=== PATIENT | male | born 1975 | race Two or more races ===

== ENCOUNTER → 2018-11-06 | Outpatient (CLI) | payer OTHER ==
[~2018-11-06] MED LIST: OXYC1TAB15 PO
--- NOTE | 2018-11-06 15:11 | RAD ---
FDG tumor localization scan, 11/06/2018: History: Left lower lobe mass Following IV injection of 13.0 mCi of 18 F-FDG, imaging was performed from the skull base to the proximal thighs. The noncontrast CT component was performed for attenuation correction and anatomic localization purposes rather than for primary diagnosis. The patient's blood glucose level the time of injection was 93 MG/DL. There is an 11 mm peripheral nodule in the posterior aspect of the left lower lobe. It demonstrates low level FDG uptake with a maximum SUV of 2.4. This is similar to the mediastinal background activity. The lack of avid FDG uptake may be due to its small size. There are 2 foci of avid FDG uptake present within the anterior and posterior aspects of left hilum. These nodules cannot be clearly from vascular structures on the noncontrast scans. The maximum SUV in this region is 7.9. The findings suggest hypermetabolic adenopathy. There is a small hypermetabolic density between the esophagus and trachea at the level of the aortic arch which demonstrates a maximum SUV of 4.3. Several other smaller nodes in the AP window region demonstrate low level FDG uptake. Physiologic activity is evident in the neck. Thyroid activity is symmetric. No hypermetabolic neck lesion is seen. Normal GI tract and urinary tract activity is present in the abdomen and pelvis. No hypermetabolic abdominal or pelvic lesion is seen. Incidental CT findings include the presence of densities in both maxillary sinuses which are probably retention cysts. IMPRESSION: 1. Left lower lobe pulmonary nodule demonstrating low level FDG uptake. This may be neoplastic or inflammatory. A small cell lung cancer is a possibility considering the left hilar findings. 2. Hypermetabolic left hilar foci suggesting metastatic disease versus a primary lung malignancy. 3. Hypermetabolic paraesophageal nodule, likely mediastinal adenopathy on a metastatic basis.
== END | disposition home or self-care (01) ==
LOC: PETSC 11:21
PROVIDERS: ATTEND Family Medicine
DX: R91.1 Solitary pulmonary nodule (principal); K22.8 Other specified diseases of esophagus
CPT/HCPCS: 78815; A9552

== ENCOUNTER 2018-11-13 09:49 | Observation (INO) | payer OTHER ==
[~2018-11-13] VITALS: Ht 170.2 cm; Wt 97.5 kg
[2018-11-13] VITALS (32 sets, daily range): BP systolic 105–153; BP diastolic 60–93
[2018-11-13] MEDS ORDERED: LIDOCAINE WITH 8.4% SOD BICARB 3 ML DISP.SYRIN. ONE (10:23)
[2018-11-13] MEDS ORDERED: FLUMAZENIL 0.5 MG/5 ML VIAL. IV ONE (10:33)
[2018-11-13] MEDS ORDERED: fentaNYL PF VIAL 100 MCG/2 ML VIAL ONE ×2 (10:33→11:53)
[2018-11-13] MEDS ORDERED: NALOXONE 0.4 MG/ML VIAL. ONE (10:33)
[2018-11-13] MEDS ORDERED: MIDAZOLAM HCL/PF 2 MG/2 ML VIAL. ONE (10:33)
[2018-11-13 10:41] LABS: BASO % 0 % (0-3); EOS # 0.2 x10^3/uL (0.0-0.7); EOS % 3 % (0-3); HEMATOCRIT 45.1 % (39.0-53.0); LYMPH # 1.5 x10^3/uL (1.0-4.8); LYMPH % 19 % (24-48); MEAN CORPUSCULAR HEMOGLOBIN 30 pg (25-35); MEAN CORPUSCULAR HGB CONC 33 g/dL (31-37); MEAN CORPUSCULAR VOLUME 90 fL (79-100); MONO # 0.7 x10^3/uL (0.0-1.1); MONO % 8 % (0-9); NEUT # 5.6 x10^3uL (1.8-7.7); NEUT % 70 % (31-73); PLATELET COUNT 225 x10^3/uL (140-400); RED CELL DISTRIBUTION WIDTH 12.8 % (11.5-14.5); WHITE BLOOD COUNT 8.1 x10^3/uL (4.0-11.0)
[2018-11-13 10:45] LABS: PROTHROMBIN TIME PATIENT 12.9 SEC (11.7-14.0)
[2018-11-13] MEDS ORDERED: MIDAZOLAM HCL/PF 2 MG/2 ML VIAL. IV ONE (10:45)
[2018-11-13] MEDS ORDERED: LIDOCAINE WITH 8.4% SOD BICARB 3 ML DISP.SYRIN. IJ ONE (10:45)
[2018-11-13] MEDS ORDERED: fentaNYL PF VIAL 100 MCG/2 ML VIAL IV ONE ×2 (10:45→12:00)
--- NOTE | 2018-11-13 12:02 | NUR ---
Patient became diaphoretic and complained of left upper abdominal pain when he was moved from CT table to cart. Dr. Valentin notified and patient was placed back on monitors and rescanned. Patient will be admitted to observe overnight due to pain and status post left lung biopsy. Will continue to monitor.
[2018-11-13] MEDS ORDERED: oxyCODONE/APAP 5/325 1 TAB TABLET PO ONE (12:30)
--- NOTE | 2018-11-13 13:01 | PDOC ---
MODERATE SEDATION ASSESSMENT RISKS/ALTERNATIVES Risks/Alternatives Risks and alternatives of this type of sedation and procedure discussed with: RISK/ALTERNATIVES: Patient H & P ON CHART H & P H & P on chart and reviewed for co-morbid conditions and appropriate labs. H&P ON CHART: Yes STATUS PREG STATUS ASSESSED: Yes MEDS/ALLERGIES REVIEWED Meds/Allergies Reviewed Medications and Allergies including time and route of recently administered narcotics and sedatives. MEDS/ALLERGIES REVIEWED: Yes ASA RATING ASA RATING: II AIRWAY ASSESSMENT Airway Assessment Airway patency, oral function limitations, presence of caps, crowns, dentures, partials, and ability to extend neck assessed. AIRWAY ASSESSMENT: Yes MALLAMPATI SCORE MALLAMPATI SCORE: II PRE-SEDATION ASSESSMENT PRE-SEDATION ASSESSMENT: Yes HENOK BHAT MD Nov 13, 2018 13:01
--- NOTE | 2018-11-13 13:06 | PDOC ---
Provider Note Provider Note IR NOTE Patient noted to have small left hemothorax post lung biopsy. Mild self limited hemoptysis also noted. Patient hemodynamically stable, with normal pulse, bp, and 02 sat. No pneumothorax. Will admit for observation and monitoring of hemodynamics, hb, and chest imaging. No anticoagulants. No medical allergies. Iodine allergy hx is from shellfish, and likely not relevant to contrast. Case discussed with CT surgery and Hospitalist, who was gracious enough to admit and help manage the patient. If hemothorax increases in size, may need drainage. If bleeding persists and does not stop spontaneously, angiogram and intercostal embolization vs VATS will be likely next steps. Will get follow Hb. 2 hour x ray ordered. HENOK BHAT MD Nov 13, 2018 13:06
[2018-11-13] MEDS ORDERED: fentaNYL PF VIAL 100 MCG/2 ML VIAL IV PRN (13:15)
[2018-11-13] MEDS ORDERED: oxyCODONE/APAP 5/325 1 TAB TABLET PO PRN (13:15)
[2018-11-13] MEDS ORDERED: diphenhydrAMINE HCL 25 MG CAPSULE PO PRN (13:15)
--- NOTE | 2018-11-13 13:16 | PDOC1 ---
History and Physical Date of Admission Date of Admission DATE: 11/13/18 TIME: 13:11 Identification/Chief Complaint Chief Complaint leFt sided chest pain post lung biopsy Source Source: Caregiver, Chart review, Patient History of Present Illness History of Present Illness [age]-year-old male who has limited Guatemalan, translates at Bedside, Was Scheduled for an Outpatient Lung Biopsy for a New Lung Spot, Previous Ex- Smoker Quit 2 Years Ago. Had Some Chest Pains Post Procedure and Now Has a Small Mild Hemothorax. Discussed with IR. Admit for Observation. Also IR has Discussed Case with T LOKESH, Continue to Observe. If Gets Worse Might Need a Chest Tube but Hopefully Will Resolve on Its Own. Patient Not on Any Blood Thinners. Patient Not on Any Medications. PAin better after percocet Patient Was Sent in by Pulmonary Office for the Lung Biopsy for This New Lung Spot Pt seen on CV office/IR post PACU Past Medical History Cardiovascular: No pertinent hx Pulmonary: No pertinent hx GI: No pertinent hx Heme/Onc: No pertinent hx Hepatobiliary: No pertinent hx Psych: No pertinent hx Rheumatologic: No pertinent hx Infectious disease: No pertinent hx ENT: No pertinent hx Renal/: No pertinent hx Endocrine: No pertinent hx Dermatology: No pertinent hx Past Surgical History Past Surgical History: No pertinent history Family History Family History: High Cholestrol, Hypertension Social History Smoke: Quit ALCOHOL: none Drugs: None Current Medications Current Medications Current Medications Lidocaine/Sodium Bicarbonate (Buffered Lidocaine 1%) 3 ml STK-MED ONCE .ROUTE ; Start 11/13/18 at 10:23; Stop 11/13/18 at 10:24; Status DC Midazolam HCl (Versed) 2 mg STK-MED ONCE .ROUTE ; Start 11/13/18 at 10:33; Stop 11/13/18 at 10:34; Status DC Fentanyl Citrate (Fentanyl 2ml Vial) 100 mcg STK-MED ONCE .ROUTE ; Start at 10:33; Stop 11/13/18 at 10:34; Status DC Flumazenil (Romazicon) 0.5 mg STK-MED ONCE IV ; Start 11/13/18 at 10:33; Stop at 10:34; Status DC Naloxone HCl (Narcan) 0.4 mg STK-MED ONCE .ROUTE ; Start 11/13/18 at 10:33; Stop 11/13/18 at 10:34; Status DC Lidocaine/Sodium Bicarbonate (Buffered Lidocaine 1%) 3 ml 1X ONCE IJ Last administered on 11/13/18at 10:45; Start 11/13/18 at 10:45; Stop 11/13/18 at 10:46 ; Status DC Midazolam HCl (Versed) 2 mg 1X ONCE IV Last administered on 11/13/18at 10:45; Start 11/13/18 at 10:45; Stop 11/13/18 at 10:46; Status DC Fentanyl Citrate (Fentanyl 2ml Vial) 100 mcg 1X ONCE IV Last administered on at 10:45; Start 11/13/18 at 10:45; Stop 11/13/18 at 10:46; Status DC Fentanyl Citrate (Fentanyl 2ml Vial) 100 mcg STK-MED ONCE .ROUTE ; Start at 11:53; Stop 11/13/18 at 11:54; Status DC Fentanyl Citrate (Fentanyl 2ml Vial) 100 mcg 1X ONCE IV Last administered on at 12:00; Start 11/13/18 at 12:00; Stop 11/13/18 at 12:03; Status DC Oxycodone/ Acetaminophen (Percocet 5/325) 1 tab 1X ONCE PO Last administered on 11/13/18at 12:30; Start 11/13/18 at 12:30; Stop 11/13/18 at 12:31; Status DC Active Scripts Active Reported No Known Medications Prior To Admisstion (Info) Each 1 Each MC 1X Allergies Allergies: Coded Allergies: Iodine and Iodide Containing Produc (Verified Allergy, Severe, Shortness of Air, 11/13/18) ROS Review of System A 14 point ROS was completed with the following noted as positive: Other systems reviewed and negative. \CONSTITUTIONAL: No fever or chills EYES: No recent changes SKIN: No rash or itching CARDIOVASCULAR: No chest pain, syncope, palpitations, or edema RESPIRATORY: No SOB or cough GASTROINTESTINAL: No nausea, vomiting or abdominal pain NEUROLOGICAL: No headaches or weakness ENDOCRINE: No cold or heat intolerance GENITOURINARY: No urgency or frequency of urination MUSCULOSKELETAL: No back pain or joint pain LYMPHATICS: No enlarged lymph nodes PSYCHIATRIC: No anxiety or depression Physical Exam General: Alert, Oriented X3, Cooperative, No acute distress HEENT: Atraumatic, PERRLA Lungs: Normal air movement, Other (symmetrical chest expansion, dullness to percussion on the left side, no wheezing) Heart: S1S2, RRR, no thrills, no rubs, no gallops, no murmurs Cardiovascular: S1, S2 Abdomen: Normal bowel sounds, Soft, No tenderness, No hepatosplenomegaly, No masses Male Genitals Exam: normal genitalia, normal prostate Rectal Exam: not examined PELVIC: Nml ext genitalia Extremities: No clubbing, No cyanosis, No edema, Normal pulses, No tenderness/ swelling Skin: No rashes, No breakdown, No significant lesion Neuro: Normal gait, Normal speech, Strength at 5/5 X4 ext, Normal tone, Sensation intact, Cranial nerves 3-12 NL, Reflexes 2+ Psych/Mental Status: Mental status NL, Mood NL Vitals Vitals Vital Signs Date Time Temp Pulse Resp B/P (MAP) Pulse Ox O2 Delivery O2 Flow Rate FiO2 11/13/18 12:30 24 98 Nasal Cannula 2.0 11/13/18 12:10 70 11/13/18 11:54 120/71 (87) Labs Labs Laboratory Tests Test 11/13/18 10:10 White Blood Count 8.1 x10^3/uL (4.0-11.0) Red Blood Count 5.00 x10^6/uL (4.30-5.70) Hemoglobin 15.0 g/dL (13.0-17.5) Hematocrit 45.1 % (39.0-53.0) Mean Corpuscular Volume 90 fL (79-100) Mean Corpuscular Hemoglobin 30 pg (25-35) Mean Corpuscular Hemoglobin Concent 33 g/dL (31-37) Red Cell Distribution Width 12.8 % (11.5-14.5) Platelet Count 225 x10^3/uL (140-400) Neutrophils (%) (Auto) 70 % (31-73) Lymphocytes (%) (Auto) 19 % (24-48) Monocytes (%) (Auto) 8 % (0-9) Eosinophils (%) (Auto) 3 % (0-3) Basophils (%) (Auto) 0 % (0-3) Neutrophils # (Auto) 5.6 x10^3uL (1.8-7.7) Lymphocytes # (Auto) 1.5 x10^3/uL (1.0-4.8) Monocytes # (Auto) 0.7 x10^3/uL (0.0-1.1) Eosinophils # (Auto) 0.2 x10^3/uL (0.0-0.7) Basophils # (Auto) 0.0 x10^3/uL (0.0-0.2) Prothrombin Time 12.9 SEC (11.7-14.0) Prothromb Time International Ratio 1.0 (0.8-1.1) Laboratory Tests Test 11/13/18 10:10 White Blood Count 8.1 x10^3/uL (4.0-11.0) Red Blood Count 5.00 x10^6/uL (4.30-5.70) Hemoglobin 15.0 g/dL (13.0-17.5) Hematocrit 45.1 % (39.0-53.0) Mean Corpuscular Volume 90 fL (79-100) Mean Corpuscular Hemoglobin 30 pg (25-35) Mean Corpuscular Hemoglobin Concent 33 g/dL (31-37) Red Cell Distribution Width 12.8 % (11.5-14.5) Platelet Count 225 x10^3/uL (140-400) Neutrophils (%) (Auto) 70 % (31-73) Lymphocytes (%) (Auto) 19 % (24-48) Monocytes (%) (Auto) 8 % (0-9) Eosinophils (%) (Auto) 3 % (0-3) Basophils (%) (Auto) 0 % (0-3) Neutrophils # (Auto) 5.6 x10^3uL (1.8-7.7) Lymphocytes # (Auto) 1.5 x10^3/uL (1.0-4.8) Monocytes # (Auto) 0.7 x10^3/uL (0.0-1.1) Eosinophils # (Auto) 0.2 x10^3/uL (0.0-0.7) Basophils # (Auto) 0.0 x10^3/uL (0.0-0.2) Prothrombin Time 12.9 SEC (11.7-14.0) Prothromb Time International Ratio 1.0 (0.8-1.1) VTE Prophylaxis Ordered VTE Prophylaxis Devices: Contraindicated VTE Pharmacological Prophylaxi: Contraindicated Assessment/Plan Assessment/Plan SMAll left-sided hemothorax post lung biopsy-not unexpected complication Smoker quit 2 years ago Plan: Serial x-rays planned T [facility] consulted Okay for regular diet So far plan is to observe No NSAIDs Control pain \FULL CODE NO home meds to reconcile Seen in PACU, post IR area OBS DIEGO MAHER MD Nov 13, 2018 13:16
--- NOTE | 2018-11-13 14:13 | RAD ---
Chest radiograph 11/13/2018 2:00 PM INDICATION: Post lung biopsy COMPARISON: Biopsy November 13, 2018 TECHNIQUE: Single upright view of the chest is provided. FINDINGS: The cardiomediastinal silhouette is within normal limits. There are no pleural effusions. There is no pulmonary vascular congestion. There is no pneumothorax. Left hilar fullness appears similar. Trace left pleural effusion is noted. No significant osseous abnormality is identified. IMPRESSION: No acute pneumothorax. Electronically signed by: Yari Rhoades MD (11/13/2018 2:10 PM) [id number]
--- NOTE | 2018-11-13 15:09 | NUR ---
Dr. Quick here earlier and spoke with Dr. Valentin, pt and pt's . discussed plan of care. pt A&O x3. denies pain at time of transfer to room 254. bandage on back procedure site has pea size spot of bloody drainage. had small amount of bloody sputum when he coughed just prior to transfer. SPO2 has been ranging 96-99% on 2 l n/c. at bedside . pt transferred up to room 254 per cart.
--- NOTE | 2018-11-13 15:30 | NUR ---
The patient, JOHNY ASH, 43 y/o, M admitted by DIEGO MAHER MD, was given written information regarding hospital policies, unit procedures and contact persons. Valuables were checked
[2018-11-13 16:18] LABS: CALCIUM 8.9 mg/dL (8.5-10.1); CREATININE 0.8 mg/dL (0.7-1.3); GFR 105.5; POTASSIUM 4.2 mmol/L (3.5-5.1)
[2018-11-14 02:53] VITALS: BP 100/58
[2018-11-14 07:00] VITALS: BP 132/60
--- NOTE | 2018-11-14 08:39 | PDOC ---
PROGRESS NOTES Chief Complaint Chief Complaint SMAll left-sided hemothorax post lung biopsy-not unexpected complication Smoker quit 2 years ago History of Present Illness History of Present Illness 43 yo male who has limited Lao, daughter translates at Bedside, Was Scheduled for an Outpatient Lung Biopsy for a New Lung Spot, Previous Ex- Smoker Quit 2 Years Ago. Had Some Chest Pains Post Procedure and apparently had a Small Mild Hemothorax. Discussed with IR. Admitted for Observation. Also IR has Discussed Case with Juan CAMPA, Continue to Observe. If Gets Worse Might Need a Chest Tube but Hopefully Will Resolve on Its Own. Patient Not on Any Blood Thinners. Patient Not on Any Medications. Pain better after percocet. Awaiting repeat CXR this morning. Denies SOB or CP. only has some left sided back pain at biopsy location. Plan: OK for d/c after repeat CXR. Vitals Vitals Vital Signs Date Time Temp Pulse Resp B/P (MAP) Pulse Ox O2 Delivery O2 Flow Rate FiO2 11/14/18 07:00 98.4 74 18 132/60 (84) 96 Room Air 98.4 11/13/18 14:20 2.0 Physical Exam General: Alert, Oriented X3, Cooperative, No acute distress Abdomen: Normal bowel sounds, Soft, No tenderness, No hepatosplenomegaly, No masses Extremities: No clubbing, No cyanosis, No edema, Normal pulses, No tenderness/ swelling Skin: No rashes, No breakdown, No significant lesion Labs LABS Laboratory Tests Test 11/13/18 10:10 11/13/18 15:50 White Blood Count 8.1 x10^3/uL (4.0-11.0) Red Blood Count 5.00 x10^6/uL (4.30-5.70) Hemoglobin 15.0 g/dL (13.0-17.5) 15.2 g/dL (13.0-17.5) Hematocrit 45.1 % (39.0-53.0) Mean Corpuscular Volume 90 fL (79-100) Mean Corpuscular Hemoglobin 30 pg (25-35) Mean Corpuscular Hemoglobin Concent 33 g/dL (31-37) Red Cell Distribution Width 12.8 % (11.5-14.5) Platelet Count 225 x10^3/uL (140-400) Neutrophils (%) (Auto) 70 % (31-73) Lymphocytes (%) (Auto) 19 % (24-48) Monocytes (%) (Auto) 8 % (0-9) Eosinophils (%) (Auto) 3 % (0-3) Basophils (%) (Auto) 0 % (0-3) Neutrophils # (Auto) 5.6 x10^3uL (1.8-7.7) Lymphocytes # (Auto) 1.5 x10^3/uL (1.0-4.8) Monocytes # (Auto) 0.7 x10^3/uL (0.0-1.1) Eosinophils # (Auto) 0.2 x10^3/uL (0.0-0.7) Basophils # (Auto) 0.0 x10^3/uL (0.0-0.2) Prothrombin Time 12.9 SEC (11.7-14.0) Prothromb Time International Ratio 1.0 (0.8-1.1) Sodium Level 141 mmol/L (136-145) Potassium Level 4.2 mmol/L (3.5-5.1) Chloride Level 104 mmol/L (98-107) Carbon Dioxide Level 30 mmol/L (21-32) Anion Gap 7 (6-14) Blood Urea Nitrogen 14 mg/dL (8-26) Creatinine 0.8 mg/dL (0.7-1.3) Estimated GFR (Cockcroft-Gault) 105.5 Glucose Level 83 mg/dL (70-99) Calcium Level 8.9 mg/dL (8.5-10.1) Comment Review of Relevant I have reviewed the following items linn (where applicable) has been applied. Labs Laboratory Tests Test 11/13/18 10:10 11/13/18 15:50 White Blood Count 8.1 x10^3/uL (4.0-11.0) Red Blood Count 5.00 x10^6/uL (4.30-5.70) Hemoglobin 15.0 g/dL (13.0-17.5) 15.2 g/dL (13.0-17.5) Hematocrit 45.1 % (39.0-53.0) Mean Corpuscular Volume 90 fL (79-100) Mean Corpuscular Hemoglobin 30 pg (25-35) Mean Corpuscular Hemoglobin Concent 33 g/dL (31-37) Red Cell Distribution Width 12.8 % (11.5-14.5) Platelet Count 225 x10^3/uL (140-400) Neutrophils (%) (Auto) 70 % (31-73) Lymphocytes (%) (Auto) 19 % (24-48) Monocytes (%) (Auto) 8 % (0-9) Eosinophils (%) (Auto) 3 % (0-3) Basophils (%) (Auto) 0 % (0-3) Neutrophils # (Auto) 5.6 x10^3uL (1.8-7.7) Lymphocytes # (Auto) 1.5 x10^3/uL (1.0-4.8) Monocytes # (Auto) 0.7 x10^3/uL (0.0-1.1) Eosinophils # (Auto) 0.2 x10^3/uL (0.0-0.7) Basophils # (Auto) 0.0 x10^3/uL (0.0-0.2) Prothrombin Time 12.9 SEC (11.7-14.0) Prothromb Time International Ratio 1.0 (0.8-1.1) Sodium Level 141 mmol/L (136-145) Potassium Level 4.2 mmol/L (3.5-5.1) Chloride Level 104 mmol/L (98-107) Carbon Dioxide Level 30 mmol/L (21-32) Anion Gap 7 (6-14) Blood Urea Nitrogen 14 mg/dL (8-26) Creatinine 0.8 mg/dL (0.7-1.3) Estimated GFR (Cockcroft-Gault) 105.5 Glucose Level 83 mg/dL (70-99) Calcium Level 8.9 mg/dL (8.5-10.1) Laboratory Tests Test 11/13/18 10:10 11/13/18 15:50 White Blood Count 8.1 x10^3/uL (4.0-11.0) Red Blood Count 5.00 x10^6/uL (4.30-5.70) Hemoglobin 15.0 g/dL (13.0-17.5) 15.2 g/dL (13.0-17.5) Hematocrit 45.1 % (39.0-53.0) Mean Corpuscular Volume 90 fL (79-100) Mean Corpuscular Hemoglobin 30 pg (25-35) Mean Corpuscular Hemoglobin Concent 33 g/dL (31-37) Red Cell Distribution Width 12.8 % (11.5-14.5) Platelet Count 225 x10^3/uL (140-400) Neutrophils (%) (Auto) 70 % (31-73) Lymphocytes (%) (Auto) 19 % (24-48) Monocytes (%) (Auto) 8 % (0-9) Eosinophils (%) (Auto) 3 % (0-3) Basophils (%) (Auto) 0 % (0-3) Neutrophils # (Auto) 5.6 x10^3uL (1.8-7.7) Lymphocytes # (Auto) 1.5 x10^3/uL (1.0-4.8) Monocytes # (Auto) 0.7 x10^3/uL (0.0-1.1) Eosinophils # (Auto) 0.2 x10^3/uL (0.0-0.7) Basophils # (Auto) 0.0 x10^3/uL (0.0-0.2) Prothrombin Time 12.9 SEC (11.7-14.0) Prothromb Time International Ratio 1.0 (0.8-1.1) Sodium Level 141 mmol/L (136-145) Potassium Level 4.2 mmol/L (3.5-5.1) Chloride Level 104 mmol/L (98-107) Carbon Dioxide Level 30 mmol/L (21-32) Anion Gap 7 (6-14) Blood Urea Nitrogen 14 mg/dL (8-26) Creatinine 0.8 mg/dL (0.7-1.3) Estimated GFR (Cockcroft-Gault) 105.5 Glucose Level 83 mg/dL (70-99) Calcium Level 8.9 mg/dL (8.5-10.1) Medications Current Medications Lidocaine/Sodium Bicarbonate (Buffered Lidocaine 1%) 3 ml STK-MED ONCE .ROUTE ; Start 11/13/18 at 10:23; Stop 11/13/18 at 10:24; Status DC Midazolam HCl (Versed) 2 mg STK-MED ONCE .ROUTE ; Start 11/13/18 at 10:33; Stop 11/13/18 at 10:34; Status DC Fentanyl Citrate (Fentanyl 2ml Vial) 100 mcg STK-MED ONCE .ROUTE ; Start at 10:33; Stop 11/13/18 at 10:34; Status DC Flumazenil (Romazicon) 0.5 mg STK-MED ONCE IV ; Start 11/13/18 at 10:33; Stop at 10:34; Status DC Naloxone HCl (Narcan) 0.4 mg STK-MED ONCE .ROUTE ; Start 11/13/18 at 10:33; Stop 11/13/18 at 10:34; Status DC Lidocaine/Sodium Bicarbonate (Buffered Lidocaine 1%) 3 ml 1X ONCE IJ Last administered on 11/13/18at 10:45; Start 11/13/18 at 10:45; Stop 11/13/18 at 10:46 ; Status DC Midazolam HCl (Versed) 2 mg 1X ONCE IV Last administered on 11/13/18at 10:45; Start 11/13/18 at 10:45; Stop 11/13/18 at 10:46; Status DC Fentanyl Citrate (Fentanyl 2ml Vial) 100 mcg 1X ONCE IV Last administered on at 10:45; Start 11/13/18 at 10:45; Stop 11/13/18 at 10:46; Status DC Fentanyl Citrate (Fentanyl 2ml Vial) 100 mcg STK-MED ONCE .ROUTE ; Start at 11:53; Stop 11/13/18 at 11:54; Status DC Fentanyl Citrate (Fentanyl 2ml Vial) 100 mcg 1X ONCE IV Last administered on at 12:00; Start 11/13/18 at 12:00; Stop 11/13/18 at 12:03; Status DC Oxycodone/ Acetaminophen (Percocet 5/325) 1 tab 1X ONCE PO Last administered on 11/13/18at 12:30; Start 11/13/18 at 12:30; Stop 11/13/18 at 12:31; Status DC Fentanyl Citrate (Fentanyl 2ml Vial) 50 mcg PRN Q2HR PRN IV PAIN; Start at 13:15; Stop 11/14/18 at 13:14 Oxycodone/ Acetaminophen (Percocet 5/325) 1 tab PRN Q4HRS PRN PO PAIN Last administered on 11/13/18at 21:05; Start 11/13/18 at 13:15; Stop 11/14/18 at 13:14 Diphenhydramine HCl (Benadryl) 25 mg PRN QHS PRN PO INSOMNIA Last administered on 11/13/18at 21:05; Start 11/13/18 at 13:15; Stop 11/14/18 at 13:14 Active Scripts Active Reported No Known Medications Prior To Admisstion (Info) Each 1 Each 1X Vitals/I & O Vital Sign - Last 24 Hours 11/13/18 11/13/18 11/13/18 11/13/18 10:45 11:08 11:14 11:17 Pulse 71 69 Resp 18 13 12 B/P (MAP) 137/93 (108) Pulse Ox 99 99 O2 Delivery Nasal Cannula Nasal Cannula Room Air O2 Flow Rate 2.0 2.0 11/13/18 11/13/18 11/13/18 11/13/18 11:18 11:23 11:28 11:39 Pulse 72 88 79 72 Resp 15 20 B/P (MAP) 143/88 (106) 147/90 (109) 125/76 (92) Pulse Ox 100 99 98 100 O2 Delivery Nasal Cannula Nasal Cannula Nasal Cannula Nasal Cannula O2 Flow Rate 2.0 2.0 2.0 2.0 11/13/18 11/13/18 11/13/18 11/13/18 11:44 11:49 11:54 12:00 Pulse 80 68 73 Resp 20 22 B/P (MAP) 120/75 (90) 133/77 (95) 120/71 (87) Pulse Ox 99 99 98 O2 Delivery Nasal Cannula Nasal Cannula Nasal Cannula O2 Flow Rate 2.0 2.0 2.0 11/13/18 11/13/18 11/13/18 11/13/18 12:00 12:10 12:25 12:30 Pulse 72 70 68 Resp 22 17 20 24 Pulse Ox 98 98 98 98 O2 Delivery Nasal Cannula Nasal Cannula Nasal Cannula Nasal Cannula O2 Flow Rate 2.0 2.0 2.0 2.0 11/13/18 11/13/18 11/13/18 11/13/18 12:40 12:55 13:10 13:25 Pulse 74 74 70 70 Resp 17 18 17 18 Pulse Ox 98 98 98 98 O2 Delivery Nasal Cannula Nasal Cannula Nasal Cannula Nasal Cannula O2 Flow Rate 2.0 2.0 2.0 2.0 11/13/18 11/13/18 11/13/18 11/13/18 13:40 13:50 13:55 14:10 Pulse 66 72 68 69 Resp 17 19 Pulse Ox 98 99 98 99 O2 Delivery Nasal Cannula Nasal Cannula Nasal Cannula Nasal Cannula O2 Flow Rate 2.0 2.0 2.0 2.0 11/13/18 11/13/18 11/13/18 11/13/18 14:20 14:45 15:00 15:15 Temp 97.6 97.6 Pulse 70 68 69 70 Resp 21 18 B/P (MAP) 135/66 (89) 146/84 (104) 146/84 (104) Pulse Ox 99 O2 Delivery Nasal Cannula Room Air O2 Flow Rate 2.0 11/13/18 11/13/18 11/13/18 11/13/18 15:30 15:45 16:15 16:45 Pulse 77 71 76 71 B/P (MAP) 138/88 (105) 137/90 (106) 153/73 (99) 140/72 (94) 11/13/18 11/13/18 11/13/18 11/13/18 17:15 18:15 19:13 21:05 Temp 97.4 97.4 Pulse 76 72 89 Resp 16 16 B/P (MAP) 135/68 (90) 131/65 (87) 124/71 (88) Pulse Ox 96 96 O2 Delivery Room Air Room Air 11/13/18 11/13/18 11/14/18 11/14/18 22:05 22:28 02:53 07:00 Temp 97.7 98.0 98.4 97.7 98.0 98.4 Pulse 84 94 74 Resp 16 18 16 18 B/P (MAP) 105/60 (75) 100/58 (72) 132/60 (84) Pulse Ox 95 96 98 96 O2 Delivery Room Air Room Air Room Air Room Air Intake and Output 11/13/18 11/13/18 11/14/18 15:00 23:00 07:00 Intake Total 480 ml 0 ml Balance 480 ml 0 ml Images PET 11/06/18 - 1. Left lower lobe pulmonary nodule demonstrating low level FDG uptake. This may be neoplastic or inflammatory. A small cell lung cancer is a possibility considering the left hilar findings. 2. Hypermetabolic left hilar foci suggesting metastatic disease versus a primary lung malignancy. 3. Hypermetabolic paraesophageal nodule, likely mediastinal adenopathy on a metastatic basis. RAFIQ MOYA MD Nov 14, 2018 08:39
[2018-11-14] MEDS ORDERED: OXYC1TAB15 PO (10:54)
--- NOTE | 2018-11-14 10:58 | PDOC3 ---
Discharge Summary Visit Information Date of Admission: Nov 13, 2018 Date of Discharge: Nov 14, 2018 Admitting Diagnosis: Hemothorax Final Diagnosis Back pain, mild hemothorax Brief Hospital Course Allergies Allergies Coded Allergies Type Severity Reaction Last Updated Verified Iodine and Iodide Containing Produc Allergy Severe Shortness of Air 11/13/18 Yes Vital Signs Vital Signs Date Time Temp Pulse Resp B/P (MAP) Pulse Ox O2 Delivery O2 Flow Rate FiO2 11/14/18 07:00 98.4 74 18 132/60 (84) 96 Room Air 98.4 11/13/18 14:20 2.0 Lab Results Laboratory Tests Test 11/13/18 10:10 11/13/18 15:50 White Blood Count 8.1 x10^3/uL (4.0-11.0) Red Blood Count 5.00 x10^6/uL (4.30-5.70) Hemoglobin 15.0 g/dL (13.0-17.5) 15.2 g/dL (13.0-17.5) Hematocrit 45.1 % (39.0-53.0) Mean Corpuscular Volume 90 fL (79-100) Mean Corpuscular Hemoglobin 30 pg (25-35) Mean Corpuscular Hemoglobin Concent 33 g/dL (31-37) Red Cell Distribution Width 12.8 % (11.5-14.5) Platelet Count 225 x10^3/uL (140-400) Neutrophils (%) (Auto) 70 % (31-73) Lymphocytes (%) (Auto) 19 % (24-48) Monocytes (%) (Auto) 8 % (0-9) Eosinophils (%) (Auto) 3 % (0-3) Basophils (%) (Auto) 0 % (0-3) Neutrophils # (Auto) 5.6 x10^3uL (1.8-7.7) Lymphocytes # (Auto) 1.5 x10^3/uL (1.0-4.8) Monocytes # (Auto) 0.7 x10^3/uL (0.0-1.1) Eosinophils # (Auto) 0.2 x10^3/uL (0.0-0.7) Basophils # (Auto) 0.0 x10^3/uL (0.0-0.2) Prothrombin Time 12.9 SEC (11.7-14.0) Prothromb Time International Ratio 1.0 (0.8-1.1) Sodium Level 141 mmol/L (136-145) Potassium Level 4.2 mmol/L (3.5-5.1) Chloride Level 104 mmol/L (98-107) Carbon Dioxide Level 30 mmol/L (21-32) Anion Gap 7 (6-14) Blood Urea Nitrogen 14 mg/dL (8-26) Creatinine 0.8 mg/dL (0.7-1.3) Estimated GFR (Cockcroft-Gault) 105.5 Glucose Level 83 mg/dL (70-99) Calcium Level 8.9 mg/dL (8.5-10.1) Laboratory Tests Test 11/13/18 15:50 Hemoglobin 15.2 g/dL (13.0-17.5) Sodium Level 141 mmol/L (136-145) Potassium Level 4.2 mmol/L (3.5-5.1) Chloride Level 104 mmol/L (98-107) Carbon Dioxide Level 30 mmol/L (21-32) Anion Gap 7 (6-14) Blood Urea Nitrogen 14 mg/dL (8-26) Creatinine 0.8 mg/dL (0.7-1.3) Estimated GFR (Cockcroft-Gault) 105.5 Glucose Level 83 mg/dL (70-99) Calcium Level 8.9 mg/dL (8.5-10.1) Brief Hospital Course 43 yo male who has limited Telugu, daughter translates at Bedside, Was Scheduled for an Outpatient Lung Biopsy for a New Lung Spot, Previous Ex- Smoker Quit 2 Years Ago. Had Some Chest Pains Post Procedure and apparently had a Small Mild Hemothorax. Discussed with IR. Admitted for Observation. Also IR has Discussed Case with T LOKESH, Continue to Observe. If Gets Worse Might Need a Chest Tube but Hopefully Will Resolve on Its Own. Patient Not on Any Blood Thinners. Patient Not on Any Medications. Pain better after percocet. Awaiting repeat CXR this morning. Denies SOB or CP. only has some left sided back pain at biopsy location. Repeat CXR shows resolution of of left pleural effusion Greater than 30 minutes spent on discharge, was seen in consultation by CT surgery and interventional radiology. Assessment: Small left-sided hemothorax post lung biopsy-not unexpected complication Smoker quit 2 years ago Plan: OK for d/c after repeat CXR was read normal PET 11/06/18 - 1. Left lower lobe pulmonary nodule demonstrating low level FDG uptake. This may be neoplastic or inflammatory. A small cell lung cancer is a possibility considering the left hilar findings. 2. Hypermetabolic left hilar foci suggesting metastatic disease versus a primary lung malignancy. 3. Hypermetabolic paraesophageal nodule, likely mediastinal adenopathy on a metastatic basis. Discharge Information Condition at Discharge: Improved Follow Up: Weeks (2) Disposition/Orders: D/C to Home Scheduled PRN Oxycodone/Apap 5-325 (Percocet 5-325 Mg Tablet ) 1 Each Tablet, 1 TAB PO PRN Q4HRS PRN for PAIN for 6 Days, #12 Prescribed by: RAFIQ MOYA MD on 11/14/18 1054 Discontinued Medications Info (No Known Medications Prior To Admisstion) Each, 1 EACH MC 1X for x, ( Reported) Entered as Reported by: YOVANI CROWE on 11/13/18 1012 Last Action: New Order on 11/13/18 1012 by RAFIQ PIEDRA MD Nov 14, 2018 10:58
[2018-11-14 11:00] VITALS: BP 136/64
--- NOTE | 2018-11-14 12:12 | PDOC ---
Provider Note Provider Note Repeat CXR this morning does not show any hemothorax or effusion whatsoever. No intervention needed, OK to d/c home. CATARINO PETERSON MD Nov 14, 2018 12:12
--- NOTE | 2018-11-14 13:09 | RAD ---
Chest radiograph 11/14/2018 10:58 AM INDICATION: Hemothorax COMPARISON: November 13, 2018 TECHNIQUE: Portable upright frontal view of the chest is provided. FINDINGS: The cardiomediastinal silhouette is within normal limits. Is interval improvement of left pleural effusion. There is no pulmonary vascular congestion. There is no pneumothorax. Similar left hilar fullness. No significant osseous abnormality is identified. IMPRESSION: There is interval improvement of left pleural effusion. No pneumothorax. Electronically signed by: Yari Rhoades MD (11/14/2018 1:06 PM) [id number]
--- NOTE | 2018-11-14 13:20 | NUR ---
Discharge Note: [facility] Discharge instructions and discharge home medications reviewed with Patient and daughter and a copy given. All questions have been answered and understanding verbalized. The following instructions and handouts were given: lung biopsy, lung biopsy care after, hemothroax Discontinued lines and drains: Peripheral IV intact. Patient discharged to Home or Self Care with Family Member via Ambulated
--- NOTE | 2018-11-14 13:31 | PDOC ---
Provider Note Provider Note IR NOTE Doing well. No complaints of pain or dyspnea. CXR essentially normal. Vitals normal. Tolerating diet and activity. Ok for DC today. HENOK BHAT MD Nov 14, 2018 13:31
--- NOTE | 2018-11-14 14:34 | RAD ---
CT-guided biopsy, left lower lobe pulmonary nodule 11/14/2018 Discussion: The patient is a 43-year-old male found to have a left sided perihilar mass and a small left lower lobe pulmonary nodule. CT appearance is nonspecific. Nodule measures approximately 1 cm in diameter. The risks and benefits of the procedure were discussed the patient and his . Informed consent was obtained. A timeout procedure was performed. CT imaging redemonstrates a posterior basilar left lower lobe nodule. 1% lidocaine was administered to the skin and overlying subcutaneous soft tissues. Under intermittent CT guidance 17-gauge needle was advanced into the periphery of the nodule. 2 core biopsy samples were obtained with 18-gauge automated needle. The needle was removed. Mild hemoptysis and mild hemothorax is noted following the procedure. The patient was observed over approximately 30 minutes and found to be hemodynamically stable. Relatively stable small hemothorax is observed over this timeframe via intermittent CT imaging. Given hemothorax, the patient was admitted for observation. The patient remained hemodynamically stable throughout. No pneumothorax. The procedures performed under conscious sedation including continuous cardiopulmonary monitoring via a dedicated sedation nurse. [id number] sedation time: 45 minutes Impression: 1. CT-guided biopsy, left lower lobe pulmonary nodule. 2. Mild pneumothorax and hemoptysis following procedure patient admitted for observation..
--- NOTE | 2018-11-14 16:07 | PATHOLOGY ---
[facility] Accession Number: [id number] . 01 Material submitted: . lung - LEFT LUNG NODULE. Modifiers: left . 01 Clinical history: . Left lung nodule . 02 Diagnosis: Lung tissue, left lung nodule CT guided needle biopsy: - Focal interstitial chronic inflammation and few small non-caseating granulomas. - Focal recent intra-alveolar hemorrhage. (JPM:pit 11/14/2018) QTP/11/14/2018 . 02 Comment: Sections of the left lung nodule CT guided needle biopsy reveal two segments of lung tissue. One of the biopsy segments shows normal pulmonary architecture with recent intra-alveolar hemorrhage. The other biopsy segment predominantly reveals normal pulmonary architecture but does show small foci of interstitial chronic inflammation with a few small non-caseating granulomas. There is also focal interstitial anthracotic pigment deposition. Properly controlled stains for acid-fast bacilli and fungi are obtained on block A1 and yield the following results: . AFB stain: Negative for acid-fast bacilli. GMS stain for fungus: Negative for yeast/fungi. . There is no evidence of malignancy. It is difficult to know whether the biopsy findings are truly statement services representative of the lesion. Please correlate with radiographic findings. . The case is also examined by Dr. Holder who concurs with the diagnosis. . (JPM:pit 11/14/2018) . Special stains performed: AFB and GMS stain for fungus on A1. . 02 Electronically signed: . Valdez Pratre MD, Pathologist NPI- [id number] . 01 Gross description: . Received in formalin labeled "Barretofuentes, Mayito, left lung biopsy," are 2 distinct needle cores of ramirez soft tissue measuring 0.8 and 1.0 cm in length and less than 0.1 cm each in diameter. The specimen is submitted entirely in cassette A1 and A2. (TSD; 11/13/2018) TOB/TOB . 02 Pathologist provided ICD-10: J98.4, J84.10 . 02 CPT . 036465, 561000, 348979 Specimen Comment: A courtesy copy of this report has been sent to Specimen Comment: [phone], , . Specimen Comment: Report sent to ,DR FINK / DR COTTER Performed at: 01 [facility] [address], [place] [id number] MD Julius Page MD Phone: [phone] Performed at: 02 [facility] [address] [place] [id number] MD Valdez Prater MD Phone: [phone]
== END 2018-11-14 13:20 | disposition home or self-care (01) ==
LOC: INTRAD 09:49 → 2 SOUTH 14:30
PROVIDERS: ADMIT Internal Medicine; ATTEND Internal Medicine
DX: J94.2 Hemothorax (principal); M54.9 Dorsalgia, unspecified; Z87.891 Personal history of nicotine dependence; Z82.49 Family history of ischemic heart disease and other diseases of the circulatory system
CPT/HCPCS: 32405; 36415; 71045; 77012; 80048; 85018; 85025; 85610; 96374; 96375; 96376; G0378; G0379; J2250; J3010; Q0163; 88305; 88312; 99152; 99153